=== PATIENT | female | born 1960 | race African-American/Black ===

== ENCOUNTER 2020-09-21 05:52 | Day surgery (SDC) | payer MEDICARE ==
[~2020-09-21] VITALS: Ht 167.6 cm; Wt 68.0 kg
[2020-09-21 06:23] LABS: BASOPHILS 0.2 % (0-2); EOSINOPHILS 1.3 % (0-7); HEMATOCRIT 27.2 % (36.0-48.0); HEMOGLOBIN 8.5 g/dL (12-16); IMMATURE GRANULOCYTES 0.2 % (0-5); LYMPHOCYTE ABS# 1.81 10x3/uL (1.18-3.74); LYMPHOCYTES 29.1 % (15-50); MCH 25.4 pg (26.0-34.0); MCHC 31.3 g/dL (31.0-37.0); MCV 81.4 fL (80.0-100.0); MEAN PLATELET VOLUME 8.9 fL (7.4-10.4); MONOCYTES 6.1 % (2-11); NEUTROPHIL ABS# 3.94 10x3/uL (1.56-6.13); NEUTROPHILS 63.1 % (40-80); PLATELET COUNT 307 10x3/uL (130-400); RBC 3.34 10x6/uL (4.00-5.40); RDW 18.2 % (11.5-14.5); WBC 6.2 10x3/uL (4.8-10.8)
[2020-09-21 06:29] LABS: ANION GAP 17.8 mmol/L (8-16); CALCIUM 8.7 mg/dL (8.5-10.1); CARBON DIOXIDE 17.9 mmol/L (21.0-32.0); CREATININE - SERUM 7.1 mg/dL (0.6-1.3); POTASSIUM - SERUM 5.7 mmol/L (3.5-5.1)
[2020-09-21 06:39] LABS: INR 1.04 (0.85-1.17); PROTIME 12.5 SECONDS (11.6-15.0)
[2020-09-21] MEDS ORDERED: HYDRALAZINE HCL25 MG PO (07:02)
[2020-09-21] MEDS ORDERED: PROCRIT/EP40000 UNIT SQ (07:03)
[2020-09-21] MEDS ORDERED: NORVASC5 MG PO (07:03)
[2020-09-21] MEDS ORDERED: COZAAR50 MG PO (07:04)
[2020-09-21 07:16] VITALS: Ht 167.6 cm; Wt 68.0 kg
[2020-09-21] MEDS ORDERED: LEVEMIR FL100 UNIT/1 SC (07:23)
[2020-09-21] MEDS ORDERED: ULTRAM50 MG PO (10:55)
--- NOTE | 2020-09-21 17:44 | NUR ---
IV D/C'D WITH CANNULA INTACT, PRESSURE HELD AND DRSG PLACED. DISCHARGE INSTRUCTIONS GIVEN AND PT VERBALIZED AN UNDERSTANDING.
--- NOTE | 2020-09-25 11:38 | OP ---
PATIENT NAME: GEORGIA NORMAN MEDICAL RECORD: [id number] :64 LOCATION:[facility] ADMISSION DATE: SURGEON: TASHIA DONAHUE MD DATE OF OPERATION: 09/21/2020 REFERRED BY: Kadi Strong MD PREOPERATIVE DIAGNOSIS: Chronic kidney disease V. POSTOPERATIVE DIAGNOSIS: Chronic kidney disease V. OPERATION PERFORMED: Creation of a left brachiocephalic arteriovenous fistula from the distal brachial artery. SURGEON: Tashia Donahue MD ANESTHESIA: General per PALLETIZER OPERATOR without regional nerve block. PREOPERATIVE NOTE: Ms. Norman is a 60-year-old -[place] diabetic female from [place], [place]. She has worsening renal failure and will need dialysis. She was referred to tx for access. Vein mapping indicated she would be a satisfactory candidate for a left brachiocephalic fistula. She was not a candidate for endovascular fistula. DESCRIPTION OF PROCEDURE: Under anesthesia, the patient was prepped and draped in sterile manner. A [place] drain was used as a proximal venous tourniquet and nitroglycerin paste applied to the intact skin of the forearm and upper arm. I examined her with the ultrasound, and confirmed the cephalic vein in the arm above the antecubital space was satisfactory. In the antecubital space the median cubital/cephalic vein was about 4-mm in diameter and suitable for anastomosis. I then made a transverse incision just beneath the antecubital crease and exposed the median cubital cephalic vein and controlled it with loops and the ligated tributaries with a 3-0 Vicryl and prepared it with topical papaverine for anastomosis. I used the deeper perforating branch for the primary anastomosis. The artery was exposed and mobilized and controlled with Silastic loops and treated with topical papaverine. The vein was flushed with heparinized saline and clamped and the artery occluded with Silastic loops. An arteriotomy in the most distal portion of the brachial artery just above this trifurcation was opened and the artery flushed proximally and distally with heparinized saline. An anastomosis between the end of the deep award clerk branch and the side of the brachial artery was then performed with running 7-0 Prolene. When completed, the occluding clamps and loops were released and excellent flow developed immediately within the fistula manifested by a palpable thrill and pulsation within the vein and excellent continuous pulsatile Doppler flow signals. There was excellent preservation of the distal radial and ulnar artery Doppler flow signals at the wrist. The wound was irrigated and infiltrated with 0.25% Marcaine without epinephrine and closed without the use of a drain with interrupted inverted 3-0 Vicryl and then running intracuticular 4-0 Stratafix and Dermabond glue. The incision was dressed with Maxorb AG, Tegaderm and Cavilon skin prep and the patient in stable condition was awakened and taken to the recovery room. Blood loss during the operation was about 5 mL, it was then replaced. Sponges, instruments and needles were accounted for. No drain was used and no surgical specimen was OPERATIVE REPORT [id number] ESTERGEORGIA ABRAMS submitted for histopathology. PLAN: The patient will go home today from the outpatient department and follow up with an appointment in my office to see me next week. She will continue her same renal ADA diet, same medications and activities. She is to keep the operative site dressing dry and clean and I will plan to remove it when she sees me in the office. She was given a prescription for 14 tramadol, 50 mg tablets, she can take one p.o. every 4 hours p.r.n. pain, no refills. TRANSINT:[id number] Voice Confirmation ID: [id number] DOCUMENT ID: [id number] TASHIA DONAHUE MD at 1138 CC: KADI STRONG MD [id number] DICTATION DATE: 09/21/20 1107 STRAIGHT KNIFE CUTTER MACHINE: 09/21/20 1433 [facility] 09/21/20 [place] [id number] [place] [id number]
== END 2020-09-21 13:17 | disposition home or self-care (01) ==
LOC: D.OPS 05:52
PROVIDERS: ATTEND Surgery
DX: N18.5 Chronic kidney disease, stage 5 (principal); I10 Essential (primary) hypertension